=== PATIENT | female | born 1995 | race African-American/Black ===

== ENCOUNTER 2018-05-30 14:59 | Day surgery (SDC) | payer OTHER ==
[2018-05-30 16:02] VITALS: BMI 43.4
[2018-05-30 16:31] LABS: Amnisure Internal Control QC ACCEPTABLE (ACCEPTABLE)
[2018-05-30 16:34] LABS: Amnisure Test No Membranes Rupture (No Rupture)
--- NOTE | 2018-05-30 16:59 | PDOC.FPROB ---
FMR OB H&P: HPI - History of Present Illness Chief Complaint: gush of fluid History of Present Illness: 22AAF @ 39.6 weeks p/w loss of fluid overnight. Patient was having sex around midnight and experienced a gush of fluid afterwards. She denies any abnormal vaginal discharge, vaginal bleeding, or abdominal pain prior to or after the event. She endorses normal movement. Her gestational course has been uncomplicated outside of some mild GERD controlled with medication. She was seen at [facility] yesterday and found to be dilated to 3 cm and was scheduled for induction tomorrow night. 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 FMR OB H&P: Medications - Current Home Medications: Medication Instructions Recorded Confirmed Type Vits96/Iron Fum/Folic 1 each PO DAILY 05/30/18 05/30/18 History [ Tablet] Ranitidine HCl 150 mg PO BID 05/30/18 05/30/18 History Allergies/Adverse Reactions: Allergies Allergy/AdvReac Type Severity Reaction Status Date / Time No Known Allergies Allergy Verified 05/30/18 15:57 FMR OB H&P: ROS - Review of Systems General: denies: fever/chills, weight/appetite/sleep changes ENT: denies: nasal congestion, rhinorrhea Respiratory: denies: cough, congestion Gastrointestinal: denies: abdominal pain, bloating, nausea, vomiting Musculoskeletal: denies: pain, stiffness Neurologic: denies: numbness, syncope Endocrine: denies: cold intolerance, heat intolerance Psychological: denies: depression, anxiety FMR OB H&P: Vital Signs - Maternal Vital signs: 120/65 mmHg 80 bpm 16 RR 98.3F - Heart Tones Baseline: 130 Variability: moderate Acceleration: present Deceleration: absent Category: category 1 [place] contractions every: irregular q5-7m FMR OB H&P: Physical Exam - Physical Exam General: NAD, awake, alert and oriented HEENT: normocephalic and atraumatic, MMM Neck: supple, trachea midline Heart: RRR, normal S1/S2 General: CTAB, no respiratory distress Abdomen: soft, gravid, fundus(cm) Neurological: cranial nerves II through XII intact Skin: no rash, good tugor - Pelvic Exam Vulva: normal hair distribution SVE: 3.5/60/-2 Membranes: intact Presentation: cephalic FMR OB H&P: Results - Labs Lab results: Laboratory Results - last 24 hr 05/30/18 16:15 Amnio Swab Test No Membranes Rupture FMR OB H&P: A/P - Problem List (1) Intrauterine normal Status: Acute Code(s): Z34.90 - ENCNTR FOR SUPRVSN OF NORMAL , UNSP, UNSP TRIMESTER Qualifiers: Trimester: third trimester Qualified Code(s): Z34.93 - Encounter for supervision of normal , unspecified, third trimester Assessment and Plan: Concern for SROM at home -Amnisure negative -3.5/60/-2 with irregular contractions -stable vital signs and Cat I strip -TIANNA approximately 16 -will discharge home for pitocin induction on morning of 06/01/18 (2) GERD (gastroesophageal reflux disease) Status: Chronic Code(s): K21.9 - GASTRO-ESOPHAGEAL REFLUX DISEASE WITHOUT ESOPHAGITIS Qualifiers: Esophagitis presence: without esophagitis Qualified Code(s): K21.9 - Gastro -esophageal reflux disease without esophagitis Assessment and Plan: -continue home ranitidine Disposition: Will discharge home at this time given her normal TIANNA, physical exam, and negative Amnisure. Discussion: Date/Time: 05/30/181654 This H&P was discussed with [] and [] who agree with the above documentation and plan. Attending Addendum - Attending Addendum Date/Time: 05/30/182143 I personally evaluated the patient and discussed the management with Dr. Willson. I agree with the History, Examination, Assessment and Plan documented above.
== END 2018-05-30 17:00 | disposition home or self-care (01) ==
LOC: L&D/OP 14:59
PROVIDERS: ATTEND Obstetrics & Gynecology
DX: O99.89 Other specified diseases and conditions complicating pregnancy, childbirth and the puerperium (principal); N89.8 Other specified noninflammatory disorders of vagina; O99.613 Diseases of the digestive system complicating pregnancy, third trimester; K21.9 Gastro-esophageal reflux disease without esophagitis; Z79.899 Other long term (current) drug therapy; Z3A.39 39 weeks gestation of pregnancy
CPT/HCPCS: 76815; 84112; 99283

== ENCOUNTER 2018-05-31 13:34 | Inpatient (IN) | payer OTHER ==
--- NOTE | 2018-06-01 08:49 | PDOC.FPROB ---
FMR OB H&P: HPI - History of Present Illness Chief Complaint: Induction History of Present Illness: 22AAF @ 40weeks presents for elective induction. She endorses normal movement. Her gestational course has been uncomplicated outside of some mild GERD controlled with medication. 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 FMR OB H&P: Medications - Current Home Medications: Medication Instructions Recorded Confirmed Type Vits96/Iron Fum/Folic 1 each PO DAILY 05/30/18 05/30/18 History [ Tablet] Ranitidine HCl 150 mg PO BID 05/30/18 05/30/18 History Allergies/Adverse Reactions: Allergies Allergy/AdvReac Type Severity Reaction Status Date / Time No Known Allergies Allergy Verified 05/30/18 15:57 FMR OB H&P: ROS - Review of Systems General: denies: fever/chills, weight/appetite/sleep changes Eyes: denies: vision changes, double vision, scotomas, floaters ENT: denies: nasal congestion, rhinorrhea Cardiovascular: denies: chest pain, edema Respiratory: denies: cough, congestion, shortness of breath Gastrointestinal: denies: abdominal pain, nausea, vomiting Genitourinary (Female): denies: vaginal pain, vaginal bleeding, contractions Musculoskeletal: denies: pain Integumentary: denies: itching, rash FMR OB H&P: Vital Signs - Heart Tones Baseline: 130 Variability: moderate Acceleration: present Deceleration: absent Category: category 1 FMR OB H&P: Physical Exam - Physical Exam General: NAD, awake, alert and oriented HEENT: normocephalic and atraumatic, MMM, grossly normal hearing Neck: supple Heart: RRR, no murmurs/rubs/gallops General: CTAB, no respiratory distress Abdomen: soft, gravid, non-tender, bowel sound present Skin: capillary refill <2 seconds Psychiatric: intact recent and remote memory, good judgement and insight, normal mood and affect - Pelvic Exam Presentation: cephalic by US Estimated Weight: 8 lbs FMR OB H&P: A/P - Problem List (1) Encounter for elective induction of labor Current Visit: Yes Status: Acute Code(s): Z34.90 - ENCNTR FOR SUPRVSN OF NORMAL , UNSP, UNSP TRIMESTER (2) Intrauterine normal Current Visit: No Status: Acute Code(s): Z34.90 - ENCNTR FOR SUPRVSN OF NORMAL , UNSP, UNSP TRIMESTER Qualifiers: Trimester: third trimester Qualified Code(s): Z34.93 - Encounter for supervision of normal , unspecified, third trimester Disposition: Term sIUP, encounter for elective induction - No complications this - FHTs 130 Cat 1 - Current cervical check 4/50/-3 - Bagley score: 5, will start induction with pitocin - Continue serial cervical checks - Epidural with last , prefers no epidural with this delivery due to wanting to walk around. Continue to assess pt's pain Discussion: Date/Time: 06/01/18 7357 This H&P was discussed with [] and [] who agree with the above documentation and plan.
[2018-06-01] MEDS ORDERED: Lidocaine 1% (PF) 30 ML VIAL SC PRN (09:07)
[2018-06-01] MEDS ORDERED: Promethazine HCl 25 MG/ML VIAL IM PRN (09:07)
[2018-06-01] MEDS ORDERED: Ibuprofen 800 MG TAB PO PRN (09:07)
[2018-06-01] MEDS ORDERED: Ondansetron PF 4 MG/2 ML Vial IVP PRN (09:07)
[2018-06-01] MEDS ORDERED: NS / Oxytocin 40 units/1000ml 1,000 ML IV PRN (09:07)
[2018-06-01] MEDS ORDERED: Acetaminophen 500 MG TAB PO PRN (09:07)
[2018-06-01] MEDS ORDERED: NS w/ Oxytocin 10 units 500 ML IV SCH ×2 (09:15)
[2018-06-01 09:30] LABS: Hemoglobin 13.1 g/dL (12.0-16.0); Mean Corpuscular HGB CONC 33.7 g/dL (32.0-36.0); Mean Corpuscular Hemoglobin 30.1 pg (27.0-31.0); Mean Corpuscular Volume 89.3 fL (78.0-98.0); Mean Platelet Volume 8.6 fL (7.4-10.4); Platelet Count 200 thou/uL (130-400); RBC Distribution Width 11.9 % (11.5-14.5); Red Blood Cell (RBC) Count 4.34 mill/uL (4.20-5.40); White Blood Cell (WBC) Count 10.9 thou/uL (4.8-10.8)
[2018-06-01] MEDS ORDERED: NS w/ Oxytocin 10 units 500 ML ONE (09:57)
[2018-06-01 10:13] LABS: Syphilis Antibody Nonreactive (Nonreactive); Syphilis Antibody Index 0.05 S/CO (<1.00 Non-Reactive)
[2018-06-01 10:15] LABS: HBSAg Index 0.19 S/CO (0-0.99); Hep B Surf Ag Non-Reactive S/CO (NonReactive)
[2018-06-01 11:04] VITALS: BMI 40.8
--- NOTE | 2018-06-01 12:51 | PDOC.LDPN ---
Labor & Delivery Progress Note - Subjective Subjective: painful contractions - Objective Vital signs reviewed and normal: yes General: breathing through contractions Uterine fundus: non tender Dilation: 5 Effacement: 75% Station: -3 FHT: category 1 (130/moderate/+ accels/no decels) [place] contractions every: 2-3min - Assessment (1) Encounter for elective induction of labor Code(s): Z34.90 - ENCNTR FOR SUPRVSN OF NORMAL , UNSP, UNSP TRIMESTER Current Visit: Yes Status: Acute (2) Intrauterine normal Code(s): Z34.90 - ENCNTR FOR SUPRVSN OF NORMAL , UNSP, UNSP TRIMESTER Current Visit: No Status: Acute Qualifiers: Trimester: third trimester Qualified Code(s): Z34.93 - Encounter for supervision of normal , unspecified, third trimester Plan: continue plan of care, labor augmentation -: 22AAF @40weeks by 8wk US presents for elective induction. Term sIUP, encounter for elective induction - No complications this - FHTs 130 Cat 1 - Current cervical check 5/75/-3 - Continue pitocin - Continue serial cervical checks - Epidural with last , prefers no epidural with this delivery due to wanting to walk around. Continue to assess pt's pain
[2018-06-01] MEDS: Lactated Ringer's 1,000 ML IV SCH ×2 (14:27→23:44)
--- NOTE | 2018-06-01 15:15 | PDOC.LDPN ---
Labor & Delivery Progress Note - Subjective Subjective: comfortable - Objective Vital signs reviewed and normal: yes General: NAD Dilation: 5 Effacement: 75% Station: -1 FHT: category 1 [place] contractions every: q2m - Assessment (1) Encounter for elective induction of labor Code(s): Z34.90 - ENCNTR FOR SUPRVSN OF NORMAL , UNSP, UNSP TRIMESTER Current Visit: Yes Status: Acute (2) Intrauterine normal Code(s): Z34.90 - ENCNTR FOR SUPRVSN OF NORMAL , UNSP, UNSP TRIMESTER Current Visit: No Status: Acute Qualifiers: Trimester: third trimester Qualified Code(s): Z34.93 - Encounter for supervision of normal , unspecified, third trimester (3) GERD (gastroesophageal reflux disease) Code(s): K21.9 - GASTRO-ESOPHAGEAL REFLUX DISEASE WITHOUT ESOPHAGITIS Current Visit: No Status: Chronic Qualifiers: Esophagitis presence: without esophagitis Qualified Code(s): K21.9 - Gastro -esophageal reflux disease without esophagitis Plan: continue plan of care -: 22AAF @40weeks by 8wk US presents for elective induction. sIUP: continue pitocin, currently at 14. Recheck in 2 hours with likely AROM at that time. Does not wish to have epidural at this time.
--- NOTE | 2018-06-01 20:52 | PDOC.LDPN ---
Labor & Delivery Progress Note - Subjective Subjective: comfortable (sleeping through contractions) - Objective Vital signs reviewed and normal: yes General: NAD Uterine fundus: non tender SVE: @ [address] Cancino Dilation: 6/80%/-1, ballotable head, posterior cervix FHT: category 1, variability present [place] contractions every: 4-5 minutes - Assessment (1) Encounter for elective induction of labor Code(s): Z34.90 - ENCNTR FOR SUPRVSN OF NORMAL , UNSP, UNSP TRIMESTER Current Visit: Yes Status: Acute -: Pitocin was at 20 and pt is not making cervical change and the head is still ballotable -Will stop the pitocin for a few hours. -Allow pt to eat dinner -Will do q4h monitoring -Plan to restart pitocin around 3-4 am.
[2018-06-01] MEDS ORDERED: Famotidine 20 MG TAB PO SCH (21:00)
--- NOTE | 2018-06-02 01:01 | PDOC.LDPN ---
Labor & Delivery Progress Note - Subjective Subjective: comfortable - Objective Vital signs reviewed and normal: yes General: NAD Uterine fundus: non tender FHT: category 1, variability present [place] contractions every: None - Assessment (1) Encounter for elective induction of labor Code(s): Z34.90 - ENCNTR FOR SUPRVSN OF NORMAL , UNSP, UNSP TRIMESTER Current Visit: Yes Status: Acute Comment: Patient stopped having ctx after the pitocin was stopped. She is resting comfortably. -Will recheck and start pitocin around 3-4 am
--- NOTE | 2018-06-02 05:32 | PDOC.LDPN ---
Labor & Delivery Progress Note - Subjective Subjective: comfortable - Objective Vital signs reviewed and normal: yes General: NAD SVE: @ 3:47 by nurse Promise Dilation: 6 Effacement: 50% Station: -2 FHT: category 1, variability present [place] contractions every: 6 minutes - Assessment (1) Encounter for elective induction of labor Code(s): Z34.90 - ENCNTR FOR SUPRVSN OF NORMAL , UNSP, UNSP TRIMESTER Current Visit: Yes Status: Acute Comment: Pit restarted, currently at 6. Pt avery every 6 minutes, still resting comfortably through them. Cervical check unchanged. -Continue pit, titrate up prn
[2018-06-02 06:51] LABS: Hemoglobin 12.6 g/dL (12.0-16.0); Mean Corpuscular HGB CONC 32.8 g/dL (32.0-36.0); Mean Corpuscular Hemoglobin 29.6 pg (27.0-31.0); Mean Corpuscular Volume 90.1 fL (78.0-98.0); Mean Platelet Volume 8.1 fL (7.4-10.4); Platelet Count 188 thou/uL (130-400); RBC Distribution Width 11.9 % (11.5-14.5); Red Blood Cell (RBC) Count 4.26 mill/uL (4.20-5.40); White Blood Cell (WBC) Count 8.8 thou/uL (4.8-10.8)
[2018-06-02] MEDS: Lactated Ringer's 1,000 ML IV SCH (08:46)
[2018-06-02] MEDS ORDERED: Fentanyl 4 mcg/Bup 0.1% Cadd 100 ML ONE (08:56)
[2018-06-02] MEDS ORDERED: Prenatal Vitamin 1 TAB PO SCH (09:00)
--- NOTE | 2018-06-02 09:58 | PDOC.LDPN ---
Labor & Delivery Progress Note - Subjective Subjective: comfortable - Objective Vital signs reviewed and normal: yes General: NAD Uterine fundus: palpable contractions SVE: @ [address] Cancino and Dr. Fuentes Dilation: 5 Effacement: 75% Station: -2 FHT: category 2 (mod variability, one decel for 1.5 minutes just after placing IUPC, spontaneously resolved, no further decels) [place] contractions every: 2 minutes AROM: clear fluid IUPC placed: yes - Assessment (1) Encounter for elective induction of labor Code(s): Z34.90 - ENCNTR FOR SUPRVSN OF NORMAL , UNSP, UNSP TRIMESTER Current Visit: Yes Status: Acute Comment: Continue pitocin, check was unchanged from prior. amniotomy performed with clear fluid and IUPC placed -Will titrate pit to adequate MVU's. -Epidural if desired.
--- NOTE | 2018-06-02 11:52 | PDOC.OPDEL ---
OB Operative/Delivery Note Delivery Dr/Surgeon: Barak Longoria Assist: Dr Fuentes Pre-Delivery Diagnosis: elective induction Procedure/Post Delivery Dx: spontaneous vaginal delivery Weeks gestation: 40 (40.2) Anesthesia: epidural - Findings A Sex: male - 1 min: 9 - 5 min: 9 - Additional Findings/Plan Placenta delivered: spontaneous Repaired Obstetrical Laceration: none Estimated blood loss: 250 ml Compilations/Other Findings: Vaginal Delivery Dictation Guideline Delivering Physician Drs. William Bennett and Barak Attending Procedure: Spontaneous Vaginal Delivery Anesthesia: epidural EBL: 250__ ml Pre-op Diagnosis: 1. Elective IOL Post-op Diagnosis: 1. same Indications: A 22y/o female presents to L & D for elective IOL Delivery Note: This is 22 yo F @ 40.2 wks who delivered a viable M infant at _1103 on 06/02/18__. Following an uneventful antepartum course, a vigorous Male was delivered over an intact perineum in the RODERICK position. Anterior Shoulder and then remainder of the body delivered. No nuchal cord. The head was held down and mouth and nares were bulb suctioned. Cord clamped after delayed cord clamping and cut and cord blood collected. Placenta delivered intact in the [place] with a 3 vessel cord noted. Fundal massage was performed and the fundus was firm. The cervix and vagina were inspected and found to be free of lacerations. went to nursery in good condition for routine care. Apgars were _9/_9_ at 1 & 5 minutes, respectively. Patient tolerated delivery well and went to after routine recovery/care. EBL 250 ml Post delivery plan: routine recovery
[2018-06-02] MEDS ORDERED: ePHEDrine/0.9% NaCl/PF SYRINGE 50 mg/10 ml SLOW IVP PRN (13:15)
[2018-06-02] MEDS ORDERED: Promethazine HCl 25 MG/ML VIAL IM PRN ×2 (13:15→14:36)
[2018-06-02] MEDS ORDERED: Eucerin (Mineral Oil/Petrolatum,White) 30 gm Jar TOP PRN (13:15)
[2018-06-02] MEDS ORDERED: diphenhydrAMINE 50 MG/ML VIAL IVP PRN (13:15)
[2018-06-02] MEDS ORDERED: Naloxone HCl 0.4 mg/ml Vial IVP PRN ×2 (13:15)
[2018-06-02] MEDS ORDERED: Ondansetron PF 4 MG/2 ML Vial IVP PRN ×2 (13:15→14:36)
[2018-06-02] MEDS ORDERED: Lactated Ringer's 500 ML IV PRN (13:15)
[2018-06-02] MEDS ORDERED: Communication Order-Pharmacy FS SCH (13:15)
[2018-06-02] MEDS ORDERED: Fentanyl 4 mcg/Bupivacaine 0.1% Cassette 100 ML EPIDURAL SCH (13:15)
[2018-06-02] MEDS ORDERED: Lanolin Ointment 7 GM TUBE TOP PRN (14:36)
[2018-06-02] MEDS ORDERED: Milk Of Magnesia 30 ML UDCUP PO PRN (14:36)
[2018-06-02] MEDS ORDERED: NS / Oxytocin 40 units/1000ml 1,000 ML IV SCH (14:36)
[2018-06-02] MEDS ORDERED: Adacel (T-DAP) 0.5 ML VIAL IM ONE (14:36)
[2018-06-02] MEDS ORDERED: Bisacodyl 10 MG SUPP PR PRN (14:36)
[2018-06-02] MEDS: Ibuprofen 800 MG TAB PO SCH ×2 (15:00→21:59)
[2018-06-02] MEDS ORDERED: Bupivacaine 0.25% HCL 30 ML VIAL ONE (15:00)
[2018-06-02] MEDS ORDERED: Ferrous Sulfate 325 MG TAB PO SCH (17:00)
[2018-06-02] MEDS: Docusate Calcium (SURFAK) 240 MG CAP PO SCH (21:59)
[2018-06-03] MEDS: Acetaminophen 325 MG TAB PO PRN ×2 (04:44→09:06)
[2018-06-03] MEDS: Ibuprofen 800 MG TAB PO SCH (06:18)
--- NOTE | 2018-06-03 06:55 | PDOC.PP ---
Post Progress Note Post Day #: 1 Subjective: 22 y/o ->2012 delivered via @ 40.2 WGA. Patient doing well, denies any current complaints. Reports that she is tolerating PO, had her lucero removed and is voiding. She ambulated once this AM , but is going to try to walk the halls today. She reports flatus and minimal lochia. PO intake tolerated: yes Flatus: yes Ambulation: yes Vital Signs (12 hours) Temp Pulse Resp BP Pulse Ox 06/03/18 04:00 97.8 F 70 18 122/62 06/03/18 00:30 97.8 F 72 18 119/74 06/02/18 20:00 97.6 F 63 20 110/63 97 Weight Weight 118.388 kg - Physical Examination General: NAD Cardiovascular: no m/r/g, RRR Respiratory: clear to auscultation bilaterally, non-labored breathing Abdominal: + bowel sounds, lochia (minimal), no distention, appropriately TTP Fundus firm & at: 2cm below umbilicus Psychiatric: A&Ox3, normal affect Result Diagrams: 06/02/18 06:36 Additional Labs: Post Labs Blood Type B POSITIVE 06/01/18 08:08 Hep Bs Antigen Non-Reactive S/CO (NonReactive) 06/01/18 08:08 (1) Term delivered Code(s): O80 - ENCOUNTER FOR FULL-TERM UNCOMPLICATED DELIVERY Status: Acute Comment: Continue routine post- care -Encourage breast feeding -PNV -Stool softeners prn -Hb WNL, so no need for iron -Encourage ambulation -Will likely d/c home today
[2018-06-03] MEDS: Prenatal Vitamin 1 TAB PO SCH ×2 (09:05→09:06)
[2018-06-03] MEDS: Docusate Calcium (SURFAK) 240 MG CAP PO SCH (09:09)
[2018-06-03 10:13] VITALS: BP 114/69; TEMP 98.3
== END 2018-06-03 13:40 | disposition home or self-care (01) | DRG 807 ==
LOC: L&D 06-01 07:29 → 3SW 06-02 14:27
PROVIDERS: ADMIT Family Medicine; ATTEND Family Medicine
PROC: 10E0XZZ Delivery of Products of Conception, External Approach (ICD-10-PCS; principal; 2018-06-02)
PROC: 10907ZC Drainage of Amniotic Fluid, Therapeutic from Products of Conception, Via Natural or Artificial Opening (ICD-10-PCS; 2018-06-02)
PROC: 3E033VJ Introduction of Other Hormone into Peripheral Vein, Percutaneous Approach (ICD-10-PCS; 2018-06-02)
DX: O99.62 Diseases of the digestive system complicating childbirth (principal); Z37.0 Single live birth; K21.9 Gastro-esophageal reflux disease without esophagitis; Z3A.40 40 weeks gestation of pregnancy; Z79.899 Other long term (current) drug therapy
CPT/HCPCS: 36415; 51702; 76815; 85027; 86780; 86850; 86900; 86901; 87340; J2001; S0020

== ENCOUNTER 2018-08-28 21:50 | Emergency (ER) | payer OTHER, SELFPAY ==
[2018-08-28 22:16] LABS: Bilirubin Negative (Negative); Blood, Urine Moderate (Negative); Clarity CLOUDY (Clear); Glucose, Urine (Dipstick) Negative (Negative); Leukocyte Large (Negative); Nitrite Negative (Negative); Protein, Urine (Dipstick) Negative (Neg-Trace); Urobilinogen 0.2 mg/dL (0.2-1.0)
[2018-08-28 22:18] LABS: RBC/HPF 0-3 HPF (0-3)
[2018-08-28 22:20] LABS: Specific Gravity, Urine 1.004 (1.002-1.036)
[2018-08-28 22:30] LABS: Bacteria/HPF Rare-Few HPF (None Seen); Squamous Epithelial 0-3 HPF (0-3)
[2018-08-28 22:31] LABS: Hyaline Casts/LPF NONE SEEN LPF (0-3 Hyaline)
== END 2018-08-28 22:46 | disposition home or self-care (01) ==
LOC: ERS 21:50
DX: N39.0 Urinary tract infection, site not specified (principal); Z79.899 Other long term (current) drug therapy; Z79.1 Long term (current) use of non-steroidal anti-inflammatories (NSAID)
CPT/HCPCS: 81003; 81015; 87077; 87086; 87186; 99283

== ENCOUNTER 2018-10-02 14:25 | Outpatient (CLI) | payer MEDICAID ==
--- NOTE | 2018-10-02 15:58 | ULT ---
TRANSABDOMINAL AND TRANSVAGINAL PELVIC ULTRASOUND WITH KRAUS SCALE, COLOR FLOW AND SPECTRAL DOPPLER IM AGIN10/02/18 HISTORY: Pelvic pain. FINDINGS: The uterus measures 9.5 x 6.3 x 4.6 cm without focal mass or endometrial fluid. The endometrium measu res 1.3 cm. The right ovary measures 3.7 x 2.9 x 1.9 cm and the left ovary measures 4 x 2.6 x 1.9 cm. Flow is de monstrated to both ovaries. No adnexal masses or free fluid in the cul-de-sac is seen. IMPRESSION: Normal exam. POS: [facility]
== END 2018-10-02 14:26 | disposition home or self-care (01) ==
LOC: BICULT 14:25
PROVIDERS: ATTEND Family Medicine
DX: R10.2 Pelvic and perineal pain (principal)
CPT/HCPCS: 76856

== ENCOUNTER 2019-11-22 20:02 | Day surgery (SDC) | payer OTHER ==
[2019-11-22] MEDS ORDERED: hydrALAZINE 20 MG/ML VIAL SLOW IVP PRN (21:37)
--- NOTE | 2019-11-22 22:03 | PDOC.FPROB ---
FMR OB H&P: HPI - History of Present Illness Chief Complaint: decreased movement, LOF, vaginal discharge Indentification: 24yo @ 25.3wk History of Present Illness: 24yo @ 25.3wk presents for decreased movement, LOF, and change in vaginal discharge. Patient states so far uncomplicated. 3 days ago had sexual intercourse with her , since that time has noticed decreased movement that has since increased since presentation. 2 days ago she was doing yoga and felt an abdominal muscle strain and subsequently noticed a change in her vaginal discharge, thicker and foul smelling. She also noticed a small leakage of clear fluid after wiping. She place toliet paper into her vaginal overnight and then next morning it was damp but not soaked. She denies any further leakage of fluid since that time. Pt endorses history of BV, no history of STDs. No vaginal bleeding. Primary Care Physician: OSIEL Cancino FMR OB H&P: Current - Care : 4 Para: 2012 Gestational age: 25.3 - OB Labs Blood type: B RH: positive FMR OB H&P: History - Past Medical History PMH: Mild intermittent asthma, uses proair prn, no recent flares. - OB History OB History: 1 elective at age 15. 2 term since. No history of gDM or gHTN. 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 - Surgical History Sx History: none - Social History Social History: Denies EtOH, illicits, or tob. . - Family History Family History: none FMR OB H&P: Medications - Current Home Medications: Medication Instructions Recorded Confirmed Type Ibuprofen [Motrin] 800 mg PO Q8HR #30 tab 06/03/18 11/22/19 Rx Acetaminophen [Tylenol] 1 cap PO Q4HR PRN 02/18/19 11/22/19 History Ciprofloxacin [Cipro] 1 cap PO BID 02/19/19 11/22/19 History Aspirin [Adult Aspirin Regimen] 81 mg PO DAILY 11/22/19 11/22/19 History Doxylamine Succinate/Vit B6 1 tab PO PRN PRN 11/22/19 11/22/19 History [Caroline CAMPBELL] Pnv No.95/Ferrous Fum/Folic AC 1 tab PO DAILY 11/22/19 11/22/19 History [ Multivitamin Tablet] Allergies/Adverse Reactions: Allergies Allergy/AdvReac Type Severity Reaction Status Date / Time No Known Allergies Allergy Verified 11/22/19 21:30 FMR OB H&P: ROS - Review of Systems General: denies: fever/chills, weight/appetite/sleep changes, night sweats Eyes: denies: vision changes ENT: denies: nasal congestion, rhinorrhea Cardiovascular: denies: chest pain, palpitation Respiratory: denies: cough, congestion, shortness of breath Gastrointestinal: denies: abdominal pain, cramping, nausea, vomiting, diarrhea, constipation Genitourinary (Female): reports: vaginal discharge. denies: dysuria, contractions FMR OB H&P: Vital Signs - Maternal Vital signs: 113/62, 98% RA. - Heart Tones Baseline: 150 Variability: moderate Acceleration: present Deceleration: absent [place] contractions every: none FMR OB H&P: Physical Exam - Physical Exam General: NAD, awake, alert and oriented HEENT: MMM, conjunctiva clear Neck: supple Heart: RRR, normal S1/S2, no murmurs/rubs/gallops, pulses present, no edema General: CTAB, no respiratory distress, good air movement, no rales/rhonchi, no wheezing Abdomen: soft, gravid, non-tender, bowel sound present Musculoskeletal: FROM in all four extremities Neurological: no focal deficit Skin: other (1cm, pedunculated skin tag under R breast) Psychiatric: intact recent and remote memory, good judgement and insight, normal mood and affect - Pelvic Exam Vulva: normal hair distribution, no masses, no lesions, no blood Deviation from normal: thick, white discharge Cervix: no masses, no lesions, no blood (no pooling on exam, no LOF with valsalva) SVE: closed FMR OB H&P: A/P - Problem List (1) Vaginal discharge during Current Visit: Yes Status: Acute Code(s): O26.899 - OTH RELATED CONDITIONS, UNSPECIFIED TRIMESTER; N89.8 - OTHER SPECIFIED NONINFLAMMATORY DISORDERS OF VAGINA (2) Intrauterine normal Current Visit: Yes Status: Acute Code(s): Z34.90 - ENCNTR FOR SUPRVSN OF NORMAL , UNSP, UNSP TRIMESTER Qualifiers: Trimester: second trimester Qualified Code(s): Z34.92 - Encounter for supervision of normal , unspecified, second trimester Disposition: 24yo @ 25.3wk presents for decreased movement, LOF, and change in vaginal discharge. #SIUP - Decreased movement x3d per patient, resolved since presentation, reassuring FHT at presentation - LOF - small volume clear fluid after sexual intercourse, since resolved - Change in vaginal discharge with foul smell - Spec exam without any pooling of fluid, closed cervix, thick/white discharge - VP3 obtained and negative - no contractions - suspect LOF/discharge 2/2 recent sexual intercourse #h/o asthma - mild intermittent, no acute flare Dispo: Reassuring FHT, spec exam with no evidence of ROM, thick white discharge. VP3 negative. Discharged home. Return/labor precautions given. Pt voiced understanding and agreement of discharge plan. F/u with PNC for routine PNC as indicated. Discussion: Date/Time: 11/22/19 6140 This H&P was discussed with Dr. Marinelli and Dr. Corral who agree with the above documentation and plan. Addendum - Attending - Attending Attestation Date/Time: 11/22/19 781 I personally evaluated the patient and discussed the management with Dr. Brody I agree with the History, Examination, Assessment and Plan documented above with any addition or exceptions noted below.
== END 2019-11-22 23:10 | disposition home health service (06) ==
LOC: L&D/OP 20:02
PROVIDERS: ATTEND Obstetrics & Gynecology
DX: O36.8120 Decreased fetal movements, second trimester, not applicable or unspecified (principal); O99.89 Other specified diseases and conditions complicating pregnancy, childbirth and the puerperium; N89.8 Other specified noninflammatory disorders of vagina; O99.512 Diseases of the respiratory system complicating pregnancy, second trimester; J45.909 Unspecified asthma, uncomplicated; O09.292 Supervision of pregnancy with other poor reproductive or obstetric history, second trimester; Z3A.25 25 weeks gestation of pregnancy; Z79.82 Long term (current) use of aspirin
CPT/HCPCS: 87480; 87510; 87660

== ENCOUNTER 2020-06-15 11:47 | Emergency (ER) | payer BC, OTHER ==
[2020-06-15] MEDS ORDERED: Azithromycin 250 MG TAB ONE (13:17)
[2020-06-15] MEDS ORDERED: cefTRIAXone\\ROCEPHIN 250 MG VIAL ONE (13:17)
[2020-06-15] MEDS ORDERED: Lidocaine 1% PF 5 ML VIAL ONE ×2 (13:18→13:19)
[2020-06-15] MEDS ORDERED: Lidocaine 1% (PF) 30 ML VIAL ONE (13:20)
== END 2020-06-15 13:50 | disposition home or self-care (01) ==
LOC: ERS 11:47
DX: N73.9 Female pelvic inflammatory disease, unspecified (principal); A64 Unspecified sexually transmitted disease; E10.9 Type 1 diabetes mellitus without complications; I10 Essential (primary) hypertension; Z79.899 Other long term (current) drug therapy
CPT/HCPCS: 96372; 99283; J0696; J2001

== ENCOUNTER 2021-10-22 12:54 | Emergency (ER) | payer OTHER | END 2021-10-22 14:00 | disposition home or self-care (01) | LOC: ERS 12:54 | DX: S40.012A Contusion of left shoulder, initial encounter (principal); V43.52XA Car driver injured in collision with other type car in traffic accident, initial encounter ==